=== PATIENT | female | born 1970 ===

== ENCOUNTER 2024-08-27 06:22 | Day surgery (SDC) | payer OTHER, SELFPAY ==
--- NOTE | 2024-08-24 22:12 | W.CON.GYNONC ---
Chief Complaint
-
Cervix Cancer
History of Present Illness
53�yo��woman�referred�to�me�by�Dr�Margo�Lyman�For�management�of�cervical�cancer.�Patient�had�Pap�smear�atypical squamous�cell,�cannot�rule�out�high�grade�intraepithelial�lesion�and�high�risk�HPV�was�positive.�Colposcopy�was�performed
revealing�KRISTIAN�2�to�3.�This�is�her�first�Pap�smear�in�[place]�and�previously�used�to�live�in�[place]�so�she�is�unsure�of�whether she�had�abnormal�Pap�smears.�She�had�a�Mirena�IUD�with�occasional�spotting.
4�patient�underwent�cold�knife�cone�biopsy�and�D&C�with�removal�of�IUD.�Pathology�shows�cervical�cone�biopsy with�grade�2�squamous�cell�carcinoma�HPV�associated,�invasive�carcinoma�is�present�from�11�8�o'clock,�HSIL�is�present
circumferentially.�Invasive�carcinoma�measures�at�least�2�cm�in�greatest�dimension�and�invades�at�least�6�mm�into�the�cervical
stroma.�Carcinoma�extends�to�multiple�deep�resection�margins,�as�well�as�endocervical�margin�at�approximately�12:00.�There�is�no
definitive�LVSI�identified.�Endometrial�curetting�was�performed,�this�also�shows�detached�fragments�of�invasive�squamous�cell carcinoma�and�HSIL�however�I�recognize�that�D&C�was�performed�prior�to�the�cone�biopsy�and�the�results�may�be�contaminated.
Social�History Patient�denies�ever�using�tobacco. Social�use�of�alcohol. Denies�any�illicit�drug�use. Occupational�Status:�Current:�[employer]. Patient�has�not�had�any�occupational�exposure. Marital�Status:�Patient�is� Gynecological�History
Age�at�Menarche�15�years.�Patient�reports�7�pregnancies. No�history�of�hormone�replacement�therapy. Family�Medical�History Brother�colon�Ca
Medical History
Allergies
Allergies reflect when allergies were last updated in [facility].
lidocaine Allergy (Verified 08/23/24 16:47)
Unknown
Physical Exam
Physical Exam
Pelvic�Examination: External�normal�labia,�urethra,�anus.� Vagina:�Normal�mucosa.�Vaginal�fornices�are�without�any�evidence�of�abnormality
Cervix:�Conization�bed�is�healing�well�after�recent�procedure,�slight�discharge�inflammatory�in�nature�and�present,�there�is�beefy�red
endocervical�tissue�about�1�cm�in�the�center,�bimanual�examination�of�the�cervix�reveal�it�to�be�multiparous�but�very�firm,�there�is
some�induration�on�the�right�parametria�adjacent�to�the�cervix�concerning�for�possible�postoperative�changes�or�parametrial involvement Uterus:�Enlarged�size�at�approximately�8�weeks�size. Adnexa:�No�pelvic�mass.
RVE:�no�masses�or�nodularity�pelvic�sidewall�is�clear�on�rectal�examination,�uterosacral�ligaments�do�not�exhibit�any�nodularity General:�Well�developed,�well�nourished�patient.�In�no�acute�distress.
Neck:�No�thyromegaly.�No�cervical�lymphadenopathy. Lungs:�Clear�to�auscultation.�Good�air�movement�bilaterally. Cardiac:�Regular�rate.�Regular�rhythm.�No�murmurs�appreciated. Right�Breast:�No�masses�or�dimpling.�No�nipple�discharge. Jaxson,
Chary, 1972 Page 2 of 7 Left�Breast:�No�masses�or�dimpling.�No�nipple�discharge. Abdomen:�Abdomen�is�soft.�Non�tender�to�palpation.�Non�distended. Extremities:�No�edema. Hematologic/Lymphatic:�No�palpable�lymphadenopathy.
Musculoskeletal:�Normal�range�of�motion.�Strength�and�Tone�are�normal. Skin:Non�jaundiced.�No�petechia.�No�purpura. Neurologic:�Speech�is�fluent.�Normal�gait�and�station.�Cranial�nerves�intact
Results
-
Imaging�Results Patient:��MARYSOL MARTINEZ1970��12:00:00��AM Location:��[facility]��View��spital Test��Performed:��PETSKTHIN
Adm��Doctor:��Caro Sumner������������������������������������������������������� ��������������������������������������������������������Ordered������ By:��Caro Sumner������������������������������������
Loc:��[facility]����������������������������������������������������������������������������������� ����������������������������Report��#:����[id number]���������������������������� Study��#:��[id number]����
���� Category:��PET���������������������������������������������������������������������������������
������������������������������Date��of��Service:��07/30/24���������������� Study��Performed:��PE��pet��Skull/Thigh��initial����������������������������������������������� ����������������������������������������������������������������������
��������������������������������������������������������������������������������REPORT� STATUS:��Signed���� PET/CT���� History:��C��53.1��cancer��cervix.��Evaluation��and��staging��of��recently��diagnosed� cervical��cancer.��
Previously��removed��IUD.�PROCEDURE:��Following��the��intravenous��injection��of��18�Fluoro�2��deoxyglucose��(FDG)��and� a��standard�� uptake��period,��a��noncontrast��CT��examination��followed��by��a��PET��scan��were��acquired�
along��the��length��of the��body��from��the��top��of��the��head��to��the��midthighs.��Noncontrast��CT��was��used��for� anatomic�� localization��and��photon��attenuation��correction��of��the��PET��scan.������ FDG��dose:��10.16��mCi������
Blood��Glucose:��79��mg/dL���� Scan��Time:��60��minutes��postinjection���� Comparison:��No��prior��PET/CT.���� FINDINGS:���� HEAD/NECK:��No��suspicious��hypermetabolic��activity.������ Physiologic��bilateral��symmetric��tonsillar��activity.����
Mild��punctate��mayo��activity��without��macroscopic��node��zone��2��left��jugular��chain� image��52��of��axial�� fused��series��303��demonstrating��maximum��SUV��2.7,��compatible��with��mild��reactive� activity.����
CHEST:��No��suspicious��hypermetabolic��activity.���� ABDOMEN/PELVIS:������ Ill�defined��focal��activity��at��the��region��of��the��cervix��(image��226��of��series�2/image��227��series��303)�� with��maximum��SUV��3.77.����
There��is��a��separate��focus��of��intense��activity��at��the��posterior��right��fundus��of� the��uterus��SUV��8.52�� suspicious��for��neoplasm,��possibly��endometrial,��versus��less��likely��inflammatory��change� related��to��
recent��IUD��removal.���� No��evidence��of��localized��pelvic��spread��or��distant��metastatic��activity.���� SKELETON:��No��suspicious��hypermetabolic��activity.���� CONCLUSION:������
1.��Ill�defined��focal��activity��in��the��region��of��the��cervix��compatible��with��history� of��cervical�� cancer.���� 2.��Separate��focus��of��intense��activity��at��the��posterior��right��uterine��fundus� suspicious��for��neoplasm,
or��less��likely��reactive��inflammatory��change��from��prior��IUD.���� 3.��No��evidence��of��local��pelvic��spread��or��distant��metastatic��activity.���� Dictated��By:��Greg��08/02/24��at��1056����
Transcribed��By:��PSCRIBE��
Impression / Plan
-
I�had�a�lengthy�discussion�with�the�patient,�her�son,�her�friend�as�well�as�daughter�in�law�and�reviewed�incidence�presentation�and natural�history�of�cervical�cancer.�
I�am�reassured�to�see�that�her�MRI�demonstrates�focus�of�vague�activity�measuring�2�x�1�x�1.4�cm,�several�uterine�fibroids�are
present�which�are�likely�responsible�for�findings�described�on�my�previous�examination.�There�is�a�separate�focus�of�increased�T2
signal�activity�in�anterior�wall�of�the�uterus�that�measures�2.2�cm,�this�is�atypical�for�fibroids,�it�has�a�solid�enhancement�similar�to
cervical�lesion�and�the�lesion�protrudes�into�the�endometrial�cavity�and�I�suspect�this�is�either�related�to�her�squamous�cell carcinoma�of�the�cervix�or�a�separate�neoplasm�i.e.�an�endometrial�cancer.
It�is�reassuring�to�see�that�on�her�PET�CT�scan�there�is�no�other�foci�of�disease�such�as�retroperitoneal�lymph�node,�there�is�no
metastatic�disease�to�chest�bone�and�liver�etc.�The�patient's�final�stage�is�1B2.�It�is�notable�that�the�PET�CT�scan�also�confirms
presence�of�ill�defined�focal�activity�in�the�region�of�the�cervix�with�SUV�seven�3.77,�there�is�a�separate�focus�in�the�fundus�of�the
uterus�which�is�with�SUV�8.5�suspicious�for�neoplasm,�it�would�be�unusual�that�this�is�related�to�the�prior�IUD�placement
Patient�was�considered�for�ROCC�trial�randomizing�to�open�versus�robotic�surgery�for�cervical�cancer,�because�of�the�lesion�that�is
present�in�the�fundus�of�the�uterus�she�was�disqualified�and�recommendation�was�to�either�proceed�with�robotic�surgery�or performed�a�hysteroscopy�with�resection�of�the�lesion�in�the�fundus�prior�to�enrollment. Chary Martinez, 1970
Page 6 of 7 My�recommendation�is�to�proceed�with�surgery,�surgery�would�involve�type�C�hysterectomy�i.e.�type�III�radical�hysterectomy�to
include�removal�of�the�cervix�uterus�bilateral�parametria�as�well�as�upper�vagina,�we�will�perform�sentinel�lymph�node�injection�and
mapping�in�isolation�and�identification�and�resection�of�sentinel�lymph�nodes�however�given�the�unusual�focus�on�the�fundus�of�the
uterus�formal�pelvic�lymphadenectomy�will�be�also�obtained.�Risks�of�surgery�including�infection�bleeding�injury�to�adjacent�organs
DVT�pulmonary�embolism�cardiovascular�complications�were�discussed�and�reviewed.�In�particular�damage�and�injury�to�distal
ureter�as�well�as�bladder�and�rare�possibility�of�fistula�formations�were�discussed.�She�understands�that�Burr�catheter�will�be
maintained�in�the�bladder�7�to�14�days�depending�on�intraoperative�events.We�did�discuss�option�of�surgery�as�an�open�versus
robotic�approach�with�appropriate�modifications�that�have�been�adopted�since�publication�of�LACC�trial�including�tumor�containment.
Her�questions�were�answered,�consent�was�signed�in�the�office�today,�surgery�will�be�performed�on�Fermin�20.�[facility].
[2024-08-25 13:10] VITALS: BMI 22.5
[2024-08-27] VITALS (13 sets, daily range): BP systolic 85–125; BP diastolic 49–66; BMI 22.5
[2024-08-27] MEDS: NEURONTIN 300 MG PO (11:47)
[2024-08-27] MEDS: CELEBREX 200 MG PO (11:47)
[2024-08-27] MEDS: HEPARIN 5000 UNITS SC (11:48)
[2024-08-27] MEDS: TYLENOL 1000 MG PO (11:48)
[2024-08-27] MEDS: NORMOSOL-R/PLASMALYTE-A 1000 IV (11:49)
--- NOTE | 2024-08-27 17:20 | OR.RPT ---
Operative Report
Operative Report
Date of procedure: August 27, 2024
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
Postoperative diagnosis: Same
Procedure:
#1 robotic assisted laparoscopic type C1 radical hysterectomy, bilateral salpingo-oophorectomy
#2 robotic assisted laparoscopic bilateral sentinel lymph node excision
#3 robotic assisted laparoscopic bilateral pelvic and low periaortic lymphadenectomy
Number 4 injection of cervix with ICG dye, bilateral, 4 mapping and identification of bilateral sentinel lymph node
Surgeon: Kenneth Ignacio
Assist: Tammie Flores PA-C
Anesthesia: General Endotracheal intubation, and tap block
Estimated blood loss: 100 cc
Complications: None
Drains: None
Tubes: Burr catheter
Indication for this procedure this is a 53-year-old woman status post cone biopsy revealing 2 cm squamous cell carcinoma grade 2. On MRI and PET CT scan she has residual disease in the cervix, there is an additional focus on the fundus of the
uterus which is unclear whether it is related to the same disease or separate primary. This patient's case was discussed in multidisciplinary tumor board conference, due to the uncertainties she did not qualify [facility] and recommendation was
made for removing the uterus cervix and performing a full lymphadenectomy in order to determine extent of disease and exact histology of disease. Of note preoperative PET CT scan did not reveal any evidence of metastatic disease.
Procedure in detail: This patient was brought to the operating room and placed in supine position, general anesthesia was administered, she was intubated without any difficulty, anesthesia team performed a tap block. After that she was placed in
lithotomy position using yellowfin stirrups and prepped on the abdomen perineum and vagina. Burr catheter was inserted for bladder drainage. Next a speculum was placed in the vagina, the cervix has healed well after cone biopsy and there is no
gross disease present. Cervix was injected at 3 and 9:00 with ICG dye approximately 1 cc at 5 mm and 1 cc a 10 mm stations. I did place a sponge on a stick in the vagina for identification of upper vagina. Attention was turned to the abdomen.
Veress needle was inserted just below subcostal margin and insufflation with CO2 gas was performed up to pressure of 15 mmHg. Next 8 mm X Xi robotic ports were introduced 25 cm cephalad to symphysis pubis along the midline and then on the right and
left upper quadrant and left lateral abdomen. 11 mm trocar was introduced in the right lower quadrant. Inspection of the upper abdomen reveals liver spleen falciform ligament bilateral diaphragms to be normal. Omentum is unremarkable the uterus
has multiple fibroids ovaries are without any abnormalities there is no obvious intraperitoneal disease. Patient was placed in 28 degree Trendelenburg. Robotic system was docked. Right and left round ligaments were sealed and divided anterior and
posterior leaves of the broad ligament were dissected open. We developed paravesical and pararectal spaces. Next we used the firefly system to identify sentinel lymph nodes which were along proximal aspect of right external iliac artery both of
these were removed and submitted to pathology. Next infundibulopelvic ligament was isolated and a window was created between that and ureters. Both IP ligaments were sealed and divided tubes and ovaries were left attached to the uterus.
Systematic lymphadenectomy was performed starting from bifurcation of common iliac vessels down to the level of deep circumflex iliac artery and vein with lateral boundary of the genitofemoral nerve, medial boundary of ureter and superior vesicle
artery extending along the hypogastric vessels and also obturator fossa anterior to the obturator nerve. Lymph nodes were placed in right and left packets and kept in endoscopic bag and retrieved after hysterectomy was completed. Additional lymph
nodes were removed along the left periaortic region and submitted to pathology. We turned our attention to the pelvis, the course of the ureter was followed and the peritoneum was opened approximately 2 cm above the level of the uterus. We opened
the peritoneum in the posterior cul-de-sac and pushed the rectum down and developed the rectovaginal space. Both uterosacral ligaments were sealed and divided approximately longterm between the uterus and sacrum. Next the origin of uterine artery
was identified, the uterine arteries were skeletonized. Uterine artery was sealed at its origin bilaterally, clips were applied to both uterine arteries and they were cut. We followed the course of the ureter and freed up the parametria on the
right and left side removing the entire parametrial tissue between the uterus and pelvic sidewall. Ureter was continued to followed and ureteral tunnels were developed and the tissue was unroofed. Once the tissue was reflected medially both on
right and left side we continue to remove and resect the residual portions of uterosacral ligament. Bladder flap at this point was developed and advanced below the level of uterus vaginal junction, we freed up approximately 2 to 3 cm of vagina
circumferentially. Next circumferential incision was made on the vagina after closing the upper vagina for tumor containment. The suture for closure of the upper vagina was actually cut after the specimen of uterus and cervix was removed and
specimen was submitted to pathology. The packets of lymph node from right and left pelvis was also removed. Attention was then turned abdominally. 0 Vicryl suture ligature was used to close the vaginal cuff at both apices, V-Loc suture was used
to close the cuff in 2 layers starting from right to the left and running back to the right side. We examined both parametria for hemostasis and identified a small bleeding vein on the right side which was controlled with bipolar cautery. I then
sprayed a total of 8 mL of Tisseel over the exposed retroperitoneal lymph node dissection sites and over the vaginal cuff. We removed the 11 mm port and used a Benjamin Euceda system to close the fascia at the level of right lower quadrant. Next
pneumoperitoneum was released robotic system was undocked and the skin at all port sites were closed with 4-0 Monocryl in a subcuticular fashion. The vagina was inspected there was no lacerations the vagina was irrigated and cleaned. Burr
catheter was left in situ. Patient was extubated and returned back to recovery room stable awake and extubated condition. Counts of laps instruments and needle was correct x 2. I was present and scrubbed for entire procedure as dictated above.
Disposition: To PACU, alert awake extubated with Burr catheter
[2024-08-27] MEDS: ZOFRAN 4 MG IV (17:36)
[2024-08-27] MEDS: DILAUDID 0.25 MG IV ×2 (17:38→18:00)
[2024-08-27] MEDS: COMPAZINE 5 MG IV (17:58)
== END 2024-08-27 19:37 | disposition home or self-care (01) ==
LOC: SDS 06:22
PROVIDERS: ATTENDING PHYSICIAN Obstetrics & Gynecology Gynecologic Oncology
DX: C53.1 Malignant neoplasm of exocervix (principal); D25.9 Leiomyoma of uterus, unspecified; N83.8 Other noninflammatory disorders of ovary, fallopian tube and broad ligament; N83.202 Unspecified ovarian cyst, left side
CPT/HCPCS: 58571; 38570; 88307; 88309; 36415; 86850; 86900; 86901; 88342; 93005; C9250

== ENCOUNTER 2024-08-30 15:08 | Emergency (ER) | payer OTHER, SELFPAY ==
[2024-08-30 15:31] VITALS: BP 115/71
[2024-08-30 15:57] LABS: % Basophils 0.3 % (0-2); % Eosinophils 4.5 % (0-6); % Immature Granulocytes 0.3 % (0-0.5); % Lymphocytes 19.5 % (20.5-51.1); % Monocytes 6.8 % (1.7-9.3); % Neutrophils 68.6 % (42.2-75.2); Absolute Eosinophils 0.4 10^3/uL (0-0.7); Absolute Lymphocytes 1.8 10^3/uL (1.2-3.4); Absolute Monocytes 0.6 10^3/uL (0.1-0.6); Absolute Neutrophils 6.4 10^3/uL (1.4-6.5); Hematocrit 37.9 % (37.0-47.0); Hemoglobin 12.8 g/dL (12.0-16.0); Mean Corp Hgb Conc. 33.8 g/dL (33.0-37.0); Mean Corpuscular Hgb 27.4 pg (27.0-31.0); Nucleated Red Blood Cells % 0 %; Platelet Count 262 10^3/uL (130-400); Red Blood Cell Count 4.68 10^6/uL (4.20-5.40); Red Cell Dist. Width 13.3 % (11.5-14.5); White Blood Cell Count 9.3 10^3/uL (4.8-10.8)
[2024-08-30 16:05] LABS: Urine Albumin 1+ (Neg - Trace); Urine Bilirubin Negative (Negative); Urine Character Clear (Clear); Urine Glucose Trace (Negative); Urine Ketone Negative (Negative); Urine Leukocyte Trace (Negative); Urine Nitrite Negative (Negative); Urine Occult Blood 4+ (Negative); Urine Urobilinogen Negative (Neg - 1+)
[2024-08-30 16:12] LABS: ALT (SGPT) 25 U/L (0-35); AST (SGOT) 32 U/L (14-36); Alkaline Phosphatase 65 U/L (38-126); Blood Urea Nitrogen 13 mg/dl (7-17); Calcium 9.6 mg/dl (8.4-10.2); Carbon Dioxide 28 mmol/L (22-30); Chloride 103 mmol/L (98-107); Glucose 106 mg/dl (70-99); Potassium 4.5 mmol/L (3.5-5.1); Sodium 137 mmol/L (135-145); Total Bilirubin 0.3 mg/dl (0.2-1.3); Total Protein 6.8 g/dl (6.3-8.2); eGFR > 60.00
[2024-08-30 16:56] LABS: Urine Bacteria Few (Negative); Urine Red Blood Cell 80-90 /HPF (0-2); Urine Squamous Cell 0-2 /LPF (Few); Urine White Cell 0-2 /HPF (0-5)
--- NOTE | 2024-08-30 18:37 | ED.GENMED ---
History of Present Illness
General
Chief Complaint: Post Operative Problem(s)
Source: patient, family and physician
Time Seen by Provider: 08/30/24 18:26
History of Present Illness
History of Present Illness:
54-year-old female with past medical history of cervical cancer status post robotic radical hysterectomy presenting to the emergency department at request of her [employer] oncologist, Dr. Ignacio, for evaluation of hematuria within the Burr catheter bag
and some mild left-sided flank pain that started over the last 24 hours. Patient notes no fevers, vomiting, bowel changes. She has been feeling well postoperatively. She has a follow-up arranged in 1 week. She reports that her physician was
concerned for possible urinary tract infection or pyelonephritis. No other concerns presently.
Past History
Past History
ED Past Medical History: Cancer and Hyperthyroidism
ED Past Surgical History: Gynecological
Social History
Tobacco: Non-smoker
Alcohol: None
Drug: None
Personal: Single
Living: with family
Review of Systems
Review of Systems
All Other Systems: ROS reviewed and negative except as documented in HPI and ROS
Phy Exam
Physical Exam
Physical Exam:
GENERAL: Alert , in no apparent distress
EYE: clear conjunctiva b/l
HEAD: NCAT
ENT: o/p clr, mmm.
CARDIAC: Regular rate and rhythm .
LUNGS: Clear breath sounds bilaterally, no acute respiratory distress, no wheezes/rales/rhonchi
ABDOMEN: Soft, mild lower abd ttp. small area of ecchymosis LLQ, no r/g, no cvat
NEUROLOGICAL: Alert and oriented
SKIN: Warm and dry, skin intact.
MUSCULOSKELETAL: No edema, well perfused.
PSYCH: Normal and appropriate interaction.
Scores
Heart Failure Risk
Heart Failure Risk Score: Not Applicable
Heart Score for Chest Pain Patients
STEMI patient?: Not applicable
Withdrawal Assessment of Alcohol
Withdrawal Assessment Completed?: Not applicable
Course
Orders/Labs/Results
Orders:
Orders
08/30/24 15:36
Complete Blood Count/With Diff Urgent
Comprehensive Metabolic Panel Urgent
Urinalysis Reflex To Culture Urgent
Date Specimen was Collected: 08/30/24
Time Specimen was Collected: 15:36
Urine Microscopic Reflex Cult Urgent
Urine Culture Urgent
LYSSA Source: U
Specimen Description:
Date Specimen was Collected: 08/30/24
Time Specimen was Collected: 15:36
Comment: ADD ON
08/30/24 18:24
Add On- LAB Urgent
Tests Added?: Urine culture
08/30/24 18:37
Nitrofurantoin Monohydrate [Macrobid] 100 mg PO NOW STA
Abnormal Lab Results
08/30/24
15:36
Lymphocytes % 19.5 L %
(20.5-51.1)
Creatinine 0.4 L mg/dL
(0.6-1.0)
Glucose 106 H mg/dl
(70-99)
Ur Occult Blood Reflex 4+ A
(Negative)
Leukocyte Esterase Rfl Trace A
(Negative)
Urine RBC 80-90 A /HPF
(0-2)
Urine Bacteria (Reflex) Few A
(Negative)
Urine Glucose Trace A
(Negative)
Urine Albumin (Reflex) 1+ A
(Neg - Trace)
08/30/24 15:36
08/30/24 15:36
Vital Signs
Initial and Last Documented VS:
Initial Vital Signs
Temp Pulse Resp BP Pulse Ox
98.5 F 98 18 115/71 98
08/30/24 15:31 08/30/24 15:31 08/30/24 15:31 08/30/24 15:31 08/30/24 15:31
Last Documented Vital Signs
Temp Pulse Resp BP Pulse Ox
98.5 F 98 18 115/71 98
08/30/24 15:31 08/30/24 15:31 08/30/24 15:31 08/30/24 15:31 08/30/24 15:31
MDM/Problems Addressed
Differential Diagnosis Includes:
Hemorrhagic cystitis, pyelonephritis, renal/ureteral colic, kidney stone, postoperative pain
MDM/Problems Addressed:
54-year-old female presenting to the emergency department for evaluation of hematuria that started within the last 24 hours. Status post robotic radical hysterectomy for cervical cancer. She is afebrile. Pain relatively controlled. Labs and
urine were initiated while in triage. There is no leukocytosis, no anemia and renal function is within normal limits. Patient's UA does show 4+ blood with 80-90 RBCs, 0-2 WBCs and only trace leukocytes but few bacteria likely signifying
contamination. Will contact patient's [employer] oncologist to discuss with ultimate plan of being discharged home or if they would prefer further imaging for further evaluation
Chronic conditions affecting care: Previous abdomnial surgery and Cancer
Acute Exacerbation and/or Progression of Chronic Illness: Cancer
*Pulse Oximetry
Patient hypoxic: no
*Critical Care Note
Total Time (30-74mins, 75-104mins- exclusive of procedures): Not Applicable
Data Reviewed
Review of Other/Old Records Reveals: Records and Operative Reports
Patient Management
Discussion with other providers: Clam Digger
Escalation/DeEscalation of care consider admission/obs:
Spoke with patient's [employer] oncologist, Dr. Ignacio, who does not feel that patient needs any imaging at this time. Request patient be discharged home on Macrobid twice daily x 7 days. Has follow-up scheduled with the patient for early next week.
Patient and family aware of return precautions.
ED Attending Note
-
Portions of this chart may have been created with voice recognition software.� Occasional wrong word or��sound alike� substitutions may have occurred due to the inherent limitations of voice recognition software.
Discharge Plan
Departure
Patient Disposition: Home (Routine Discharge)
Date of Disposition: 08/30/24
Time of Disposition: 18:37
Patient with high blood pressure during this ER visit?: No
Discharge Problem:
Hemorrhagic cystitis
Instructions: Blood in the Urine (Hematuria), Adult (DC)
Prescriptions:
New
nitrofurantoin monohyd/m-cryst [Macrobid] 100 mg capsule
100 mg PO BID Qty: 13 0RF
No Action
diphenhydramine HCl [[employer] SleepGels] 50 mg Capsule
50 mg PO PRN PRN (Reason: insomnia)
methimazole
1 tab PO BID
Referrals:
eKnneth Ignacio MD [Active] - (As scheduled)
Interventions
Interventions:
*Risk Screen - Suicide Last Done: 08/30/24 15:31
*General Assessment Last Done: 08/30/24 18:51
*Neglect/Abuse Screening Last Done: 08/30/24 15:31
ED- Fall Risk Assessment Last Done: 08/30/24 18:52
*ED COVID-19 Vaccine History Last Done: 08/30/24 18:51
*Nursing Disposition Last Done: 08/30/24 18:52
Discharge Date and Time
Print Language: CANADIAN
[2024-08-30] MEDS: MACROBID 100 MG PO (18:41)
== END 2024-08-30 18:54 | disposition home or self-care (01) ==
LOC: EMR 15:08
PROVIDERS: Emergency Medicine; EMERGENCY PHYSICIAN Emergency Medicine
DX: N30.91 Cystitis, unspecified with hematuria (principal); C53.9 Malignant neoplasm of cervix uteri, unspecified; Z90.710 Acquired absence of both cervix and uterus; E05.90 Thyrotoxicosis, unspecified without thyrotoxic crisis or storm
CPT/HCPCS: 99283; 80053; 81003; 81015; 85025; 87077; 87086

== ENCOUNTER → 2024-09-06 16:14 | Outpatient (REF) | payer OTHER, SELFPAY | LOC: RAD 16:14 | PROVIDERS: ATTENDING PHYSICIAN Obstetrics & Gynecology Gynecologic Oncology; FAMILY PHYSICIAN Family Medicine | DX: C53.1 Malignant neoplasm of exocervix (principal); M79.661 Pain in right lower leg; M79.605 Pain in left leg; N30.00 Acute cystitis without hematuria | CPT/HCPCS: 93970 ==